=== PATIENT | male | born 1995 | race Caucasian/White ===

== ENCOUNTER 2022-09-23 09:53 | Emergency (ER) | payer SELFPAY ==
[~2022-09-23] VITALS: Ht 157.5 cm; Wt 99.3 kg
[2022-09-23 09:58] VITALS: BP 140/90
--- NOTE | 2022-09-23 10:20 | NUR ---
PT TO 9
--- NOTE | 2022-09-23 10:40 | NUR ---
27M PRESENTS TO ED WITH C/O RIGHT ARM PAIN X1 DAY. PT REPORTS FALLING OFF LADDER AT HOME, A CONSTANT PULSATING LIKE 7/10 NONRADIATING PAIN MOSTLY FELT IN RIGHT WRIST. PT REPORTS NUMBNESS/TINGLING TO ALL 5 DIGITS OF RIGHT HAND, LIMITED TO NO ROM OF RIGHT HAND. SWELLING NOTED TO RIGHT WRIST UPON ASSESSMENT.
[2022-09-23] MEDS ORDERED: KETOROLAC 30 MG/ML VIAL IM ONE (10:55)
[2022-09-23 12:00] VITALS: BP 132/84
[2022-09-23] MEDS ORDERED: NAPR-54 PO (12:55)
--- NOTE | 2022-09-23 13:00 | NUR ---
Patient discharged with v/s stable. Written and verbal after care instructions ABOUT WRIST SPRAIN given and explained. Patient alert, oriented and verbalized understanding of instructions. Ambulatory with steady gait. All questions addressed prior to discharge. ID band removed. Patient advised to follow up with PMD. Rx of NAPROXEN given. Patient educated on indication of medication including possible reaction and side effects. Opportunity to ask questions provided and answered.
== END 2022-09-23 13:00 | disposition home or self-care (01) ==
LOC: MED 09:53
DX: S63.501A Unspecified sprain of right wrist, initial encounter (principal); W18.30XA Fall on same level, unspecified, initial encounter; Y93.89 Activity, other specified; Y92.89 Other specified places as the place of occurrence of the external cause; Y99.8 Other external cause status
CPT/HCPCS: 29125; 73110; 96372; 99283; J1885; Q0092